=== PATIENT | male | born 1990 | race Caucasian/White ===

== ENCOUNTER 2017-12-15 06:49 | Emergency (ER) | payer BC, OTHER ==
[2017-12-15 07:08] VITALS: BP 147/87
[2017-12-15] MEDS ORDERED: AMOXICILLIN TRIHYDRATE 500 MG CAPSULE PO ONE (07:54)
[2017-12-15] MEDS ORDERED: HYDROCODONE/ACETAMINOPHEN 5-325 MG (6 TAB/ER DISP) PO PRN (07:54)
[2017-12-15] MEDS ORDERED: IBUPROFEN 800 MG TABLET PO ONE (07:54)
--- NOTE | 2017-12-15 07:56 | ER Document Report ---
ED Oral Problem - General Chief Complaint: Toothache Stated Complaint: TOOTHACHE Time Seen by Provider: 12/15/17 07:33 Notes: Patient complaining of left upper molar dental fracture and pain. Has been present for quite some time. Not getting better but getting worse. Has not seen a dentist yet. No difficulty swallowing. No fever. No significant headache. No altered mental status. Pain is described as throbbing. Rated as a 4/5 on a numeric pain scale. - HPI Patient complains to provider of: Jaw pain, Toothache Onset: Last week Onset: Gradual - Related Data Allergies/Adverse Reactions: No Known Drug Allergies Allergy (Verified 12/15/17 07:05) Past Medical History - General Information source: Patient - Social History Smoking Status: Current Every Day Smoker Chew tobacco use (# tins/day): No Frequency of alcohol use: None Drug Abuse: Marijuana Lives with: Spouse/Significant other Family History: Reviewed & Not Pertinent Patient has suicidal ideation: No Patient has homicidal ideation: No Renal/ Medical History: Denies: Hx Peritoneal Dialysis Past Surgical History: Reports: Hx Cardiac Catheterization - ablation Review of Systems - Review of Systems Constitutional: denies: Fever, Malaise, Weakness EENT: See HPI, Mouth pain, Dental problem. denies: Throat pain, Difficulty swallowing, Vertigo Cardiovascular: denies: Chest pain, Palpitations, Heart racing Respiratory: denies: Cough, Hurts to breathe, Short of breath Skin: denies: Lesions, Rash Physical Exam - Vital signs Vitals: Temp Pulse Resp BP Pulse Ox 97.9 F 55 L 20 147/87 H 100 12/15/17 07:07 12/15/17 07:07 12/15/17 07:07 12/15/17 07:07 12/15/17 07:07 Interpretation: Normal - General General appearance: Appears well, Alert In distress: None - HEENT Head: Normocephalic, Atraumatic Eyes: Normal Pupils: PERRL Notes: The left upper molar is cracked. There is no obvious gumline abscess. No significant swelling in the mouth. Teeth are in remarkably good shape. - Respiratory Respiratory status: No respiratory distress Chest status: Nontender Breath sounds: Normal Chest palpation: Normal - Cardiovascular Rhythm: Regular Heart sounds: Normal auscultation Murmur: No - Neurological Neuro grossly intact: Yes Cognition: Normal Orientation: AAOx4 Ceferino Coma Scale Eye Opening: Spontaneous Ceferino Coma Scale Verbal: Oriented Ceferino Coma Scale Motor: Obeys Commands [place] Coma Scale Total: 15 Speech: Normal Motor strength normal: LUE, RUE, LLE, RLE Sensory: Normal - Skin Skin Temperature: Warm Skin Moisture: Dry Skin Color: Normal Course - Re-evaluation Re-evalutation: 12/15/17 08:22 Based on antibiotics, pain medicine, recommend dental follow-up. Will DC at this time. - Vital Signs Vital signs: Temp Pulse Resp BP Pulse Ox 97.9 F 55 L 20 147/87 H 100 12/15/17 07:07 12/15/17 07:07 12/15/17 07:07 12/15/17 07:07 12/15/17 07:07 Discharge - Discharge Clinical Impression: Dental infection Condition: Good Disposition: HOME, SELF-CARE Instructions: [facility], Oral Narcotic Medication ([facility]), Toothache ([facility]) Prescriptions: Amoxicillin 1 tab PO TID 7 Days #21 tab Ibuprofen [Motrin 800 mg Tablet] 800 mg PO Q8H PRN #30 tab PRN Reason:
== END 2017-12-15 08:10 | disposition home or self-care (01) ==
LOC: ER 06:49
DX: K04.7 Periapical abscess without sinus (principal); K08.89 Other specified disorders of teeth and supporting structures; F12.10 Cannabis abuse, uncomplicated
CPT/HCPCS: 99282

== ENCOUNTER 2019-10-12 14:35 | Emergency (ER) | payer BC ==
[2019-10-12] MEDS ORDERED: LORAZEPAM INJ 2 MG/1 ML VIAL IV ONE (15:01)
--- NOTE | 2019-10-12 15:18 | ER Document Report ---
ED General - General Chief Complaint: Chest Pain Stated Complaint: CHEST PAIN Time Seen by Provider: 10/12/19 14:54 Primary Care Provider: GORDY KENNEDY MD [ACTIVE STAFF] - Follow up as needed Notes: 29-year-old male with a history of Xwkry-Fyxxhfufj-Sxdgg ablated 10 years ago has had no care since then, presents with chest pain intermittently for 6 weeks sharp palpitations has not been seen for this. He came here today for this but when getting checked and became quite short of breath with hand cramping and tingling. He has no shortness of breath no fevers coronavirus contacts. He smokes occasional marijuana and cigarettes drinks occasional alcohol but no other substances. Ports that when his blood pressure is being taken his hand cramped up. - Related Data Allergies/Adverse Reactions: No Known Drug Allergies Allergy (Verified 12/15/17 07:05) Past Medical History - Social History Smoking Status: Current Some Day Smoker Smoking Education Provided: Yes - The patient ED visit today was directly related to their abuse of tobacco. Family History: Reviewed & Not Pertinent Renal/ Medical History: Denies: Hx Peritoneal Dialysis Past Surgical History: Reports: Hx Cardiac Catheterization - ablation Physical Exam - Vital signs Vitals: Pulse Ox 100 10/12/19 14:59 Course - Re-evaluation Re-evalutation: 10/12/19 18:47 Patient with history of WPW presents with intermittent atypical chest pain for weeks, and shortness of breath today after checking in. He has some signs of carpopedal spasm and is hyperventilating so I think this is very likely secondary to hyperventilation secondary to anxiety because of his chest pain. He has no acute ST or T wave changes on his EKG negative troponin, calm down well with a dose of Ativan, and on repeat EKG did not show any subtle findings of preexcitation or ischemia. I have referred him to a local car wash attendant automatic and he is comfortable being discharged home. His electrolytes were essentially normal. I have discussed with the patient there likely diagnosis, aftercare plan, follow-up plans and my usual and customary return precautions. They verbalized understanding of this. - Vital Signs Vital signs: Temp Pulse Resp BP Pulse Ox 98.6 F 13 126/85 H 97 10/12/19 16:39 10/12/19 16:38 10/12/19 16:39 10/12/19 16:39 - Laboratory Result Diagrams: 10/12/19 15:07 Laboratory results interpreted by me: 10/12/19 15:07 Sodium 136.5 L Potassium 3.5 L Glucose 125 H - Diagnostic Test Radiology reviewed: Image reviewed, Reports reviewed - EKG Interpretation by Me EKG shows normal: Sinus rhythm Rate: Normal, Tachycardia Rhythm: NSR When compared to previous EKG there are: Previous EKG unavailable - EKG #2: Sinus tachycardia less so than previous with no ST changes or preexcitation Discharge - Discharge Clinical Impression: Atypical chest pain Condition: Good Disposition: HOME, SELF-CARE Referrals: GORDY KENNEDY MD [ACTIVE STAFF] - Follow up as needed
--- NOTE | 2019-10-12 15:33 | RADIOLOGY REPORT (SQ) ---
EXAM DESCRIPTION: CHEST SINGLE VIEW IMAGES COMPLETED DATE/TIME: 10/12/2019 3:22 pm REASON FOR STUDY: SOB COMPARISON: None. EXAM PARAMETERS: NUMBER OF VIEWS: One view. TECHNIQUE: Single frontal radiographic view of the chest acquired. RADIATION DOSE: NA LIMITATIONS: None. FINDINGS: LUNGS AND PLEURA: No opacities, masses or pneumothorax. No pleural effusion. MEDIASTINUM AND HILAR STRUCTURES: No masses. Contour normal. HEART AND VASCULAR STRUCTURES: Heart normal in size. Normal vasculature. BONES: No acute findings. HARDWARE: None in the chest. OTHER: No other significant finding. IMPRESSION: NO ACUTE RADIOGRAPHIC FINDING IN THE CHEST. TECHNICAL DOCUMENTATION: JOB ID: [id number] 2010 [employer]- All Rights Reserved Reading location - IP/workstation name: [email or web address]
[2019-10-12 15:44] LABS: ANION GAP 14 (5-19); BLOOD UREA NITROGEN 13 mg/dL (7-20); CARBON DIOXIDE 24 mmol/L (22-30); CHLORIDE 99 mmol/L (98-107); GLUCOSE 125 mg/dL (75-110); POTASSIUM 3.5 mmol/L (3.6-5.0)
[2019-10-12 16:43] VITALS: BP 126/85
--- NOTE | 2019-10-12 20:59 | EKG REPORT ---
SEVERITY:- ABNORMAL ECG - SINUS RHYTHM BORDERLINE Q WAVES IN LATERAL LEADS INFERIOR Q WAVES, PROBABLY NORMAL VARIATION ST ELEVATION SUGGESTS PERICARDITIS : Confirmed by: Janet Hua MD 12-Oct-2019 20:59:12
--- NOTE | 2019-10-12 21:00 | EKG REPORT ---
SEVERITY:- OTHERWISE NORMAL ECG - SINUS TACHYCARDIA : Confirmed by: Janet Hua MD 12-Oct-2019 20:59:47
== END 2019-10-12 16:49 | disposition home or self-care (01) ==
LOC: ER 14:35
DX: R07.89 Other chest pain (principal); R00.0 Tachycardia, unspecified; I45.6 Pre-excitation syndrome; R00.2 Palpitations; R20.0 Anesthesia of skin; F12.10 Cannabis abuse, uncomplicated; F17.210 Nicotine dependence, cigarettes, uncomplicated
CPT/HCPCS: 93005; 99285; 96374; 36415; 80048; 84484; 85379; 71045; 93010; J2060

== ENCOUNTER 2019-10-15 06:53 | Emergency (ER) | payer BC ==
--- NOTE | 2019-10-15 07:35 | ER Document Report ---
ED General - General Chief Complaint: Chest Pain Stated Complaint: CHEST PAIN Time Seen by Provider: 10/15/19 07:19 Mode of Arrival: Ambulatory Information source: Patient Notes: An 29-year-old male presents to the emergency department with a complaint of chest discomfort. Apparently seen in the emergency department 10/12/2019, evaluation at time was negative for acute coronary related syndrome. It is noted that the patient had a history of WPW, ablation procedure 10 years ago at [facility]. He complains of approximately 6 weeks of intermittent chest discomfort with pain that radiates into his back on the left side and across the chest. Intermittent episodes unrelated to activities apparently no prolonged episodes which resolve within minutes. He is a smoker, cigarettes and marijuana. He denies illicit drug use. - Related Data Allergies/Adverse Reactions: No Known Drug Allergies Allergy (Verified 12/15/17 07:05) Past Medical History - Social History Smoking Status: Current Every Day Smoker Family History: Reviewed & Not Pertinent Neurological Medical History: Reports: Hx Seizures Renal/ Medical History: Denies: Hx Peritoneal Dialysis Past Surgical History: Reports: Hx Cardiac Catheterization - ablation Review of Systems - Review of Systems Notes: Constitutional: Negative for fever. HENT: Negative for sore throat. Eyes: Negative for visual changes. Cardiovascular: + Chest pain. Respiratory: Negative for shortness of breath. Gastrointestinal: Negative for abdominal pain, vomiting or diarrhea. Genitourinary: Negative for dysuria. Musculoskeletal: Negative for back pain. Skin: Negative for rash. Neurological: Negative for headaches, weakness or numbness. 10 point ROS negative except as marked above and in HPI. Physical Exam - Vital signs Vitals: Temp Resp Pulse Ox 98.1 F 16 98 10/15/19 07:28 10/15/19 07:28 10/15/19 07:28 - Notes Notes: PHYSICAL EXAMINATION: Physical Exam: General: Well-nourished well-developed 29-year-old man in no acute distress HEENT: NC/AT, pupils equal round and reactive to light, MM moist,nares clear, oropharynx clear, airway patent Neck: supple, no adenopathy, no masses. Good range of motion Lungs: clear, no wheezing, no rales no rhonchi CVS: Regular rate and rhythm no murmur gallop or rub Abdomen: Soft, active, nontender, no masses, no hepatosplenomegaly Ext: No edema, clubbing or cyanosis. Neuro: Alert and responsive, moving all 4 extremities on command, cranial nerves intact, no focal findings Skin: Intact no open lesions, no rash PSYCH: Normal mood, normal affect. Course - Re-evaluation Re-evalutation: 10/15/19 08:48 29-year-old man with atypical chest pain. Presently not using any medications for symptoms. EKG nondiagnostic physiologic Q waves in repolarization abnormality. I have compared this EKG with the prior 1 and there is no significant difference. 10/15/19 08:50 Reviewed the labs no acute findings. - Vital Signs Vital signs: Temp Pulse Resp BP Pulse Ox 98.2 F 11 L 119/81 97 10/15/19 09:20 10/15/19 09:20 10/15/19 09:20 10/15/19 09:20 - Laboratory Result Diagrams: 10/15/19 07:33 10/15/19 07:33 Laboratory results interpreted by me: 10/15/19 07:33 RDW 14.4 H Lymph % (Auto) 54.5 H Seg Neutrophils % 34.4 L I have reviewed laboratory data and used this information for the treatment decisions regarding the patient. - EKG Interpretation by Ar EKG shows normal: Sinus rhythm - Rate of 67, patient noted to have physiologic Q waves, repolarization abnormality, compared with a prior EKG dated 10/12/2019 the re is no significant changes. Likely normal variant. Discharge - Discharge Clinical Impression: Non-cardiac chest pain Condition: Good Disposition: HOME, SELF-CARE Additional Instructions: Use medication as prescribed, Naprosyn, baclofen. Keep the appointment with cardiology, follow-up as needed. HOME CARE INSTRUCTIONS & INFORMATION: Thank you for choosing us for your medical needs. We hope you're satisfied with the care you received. After you l eave, you must properly care for your problem and, at the same time, observe its progress. Any condition can change. Some illnesses can change rapidly over hours or days. If your condition worsens, return to the Emergency Department or see your physician promptly. ABOUT YOUR X-RAYS AND EKG'S: If you had an EKG or X-rays taken, they have been read by the Emergency Physician. The X-rays and EKG's will also be read by a Radiologist or Apprentice Jockey within 24 hours. If discrepancies are noted, you will be notified by telephone. Please be certain the ED has a correct telephone number & address where you can be reached. Also, realize that some fractures or abnormalities do not show up on initial X-rays. If your symptoms continue, see your physician. ABOUT YOUR LABORATORY TEST: If you had laboratory tests, the results have been reviewed by the Emergency Physician. Some test results (for example cultures) may not be available for several days. You will be contacted if any test result shows you need additional treatment. Please be certain the ED has a correct telephone number and address where you can be reached. ABOUT YOUR MEDICATIONS: You will receive instructions on how to take your medicine on the prescription label you receive. Additional information may be provided by the Pharmacy. If you have questions afterwards, call the ED for clarification or further instructions. Some prescribed medications may cause drowsiness. Do not perform tasks such as driving a car or operating machinery without consulting your Pharmacist. If you feel you need a refill of pain medication, your condition will need re-evaluation. Please do not call for a refill of any medication. ABOUT YOUR SIGNATURE: Signature of this document acknowledges to followin. Understanding that you received emergency treatment and that you may be released before al medical problems are known or treated. Please be certain the ED has a correct phone number & address where you can be reached. 2. Acknowledgement that you will arrange for follow-up care as recommended. 3. Authorization for the Emergency Physician to provide information to your follow-up Physician in order to maximize your care. AT ANY TIME, IF YOUR SYMPTOMS CHANGE SIGNIFICANTLY OR WORSEN OR YOU DEVELOP NEW SYMPTOMS, RETURN TO THE EMERGENCY DEPARTMENT IMMEDIATELY FOR RE-EVALUATION. OUR GOAL IS TO PROVIDE EXCELLENT MEDICAL CARE! WE HOPE THAT WE HAVE MET YOUR EXPECTATIONS DURING YOUR EMERGENCY DEPARTMENT VISI T AND THAT YOU FEEL YOU HAVE RECEIVED EXCELLENT CARE! Prescriptions: Baclofen [Baclofen 10 mg Tablet] 10 mg PO TID #30 tab Naproxen [Naprosyn] 500 mg PO BID #20 tablet
[2019-10-15 07:45] LABS: ABSOLUTE BASOPHILS # (AUTO) 0.1 10^3/uL (0.0-0.2); ABSOLUTE EOSINOPHILS # (AUTO) 0.1 10^3/uL (0.0-0.6); ABSOLUTE LYMPHOCYTES (AUTO) 2.6 10^3/uL (0.5-4.7); ABSOLUTE MONOCYTES (AUTO) 0.4 10^3/uL (0.1-1.4); ABSOLUTE NEUT (AUTO) 1.7 10^3/uL (1.7-8.2); BASOPHILS % (AUTO) 1.3 % (0-2); EOSINOPHILS % (AUTO) 2.2 % (0-6); HEMATOCRIT 46.4 % (37.9-51.0); HEMOGLOBIN 15.8 g/dL (13.5-17.0); LYMPHOCYTES % (AUTO) 54.5 % (13-45); MEAN CORPUSCULAR HEMOGLOBIN 30.7 pg (27.0-33.4); MEAN CORPUSCULAR HGB CONC 34.1 g/dL (32.0-36.0); MEAN CORPUSCULAR VOLUME 90 fl (80-97); MONOCYTES % (AUTO) 7.6 % (3-13); PLATELET COUNT 203 10^3/uL (150-450); RED BLOOD COUNT 5.17 10^6/uL (4.35-5.55); RED CELL DISTRIBUTION WIDTH 14.4 % (11.5-14.0); SEGMENTED NEUTROPHILS % (AUTO) 34.4 % (42-78); TOTAL CELLS COUNTED % (AUTO) 100 %; WHITE BLOOD COUNT 4.8 10^3/uL (4.0-10.5)
[2019-10-15 08:04] LABS: ALKALINE PHOSPHATASE 67 U/L (38-126); ANION GAP 8 (5-19); ASPARTATE AMINO TRANSFERASE 29 U/L (17-59); BILIRUBIN,TOTAL 0.8 mg/dL (0.2-1.3); BLOOD UREA NITROGEN 12 mg/dL (7-20); CARBON DIOXIDE 28 mmol/L (22-30); CHLORIDE 102 mmol/L (98-107); CREATINE KINASE 125 U/L (55-170); GLUCOSE 104 mg/dL (75-110); POTASSIUM 4.5 mmol/L (3.6-5.0); TOTAL PROTEIN 8.2 g/dL (6.3-8.2)
--- NOTE | 2019-10-15 08:04 | EKG REPORT ---
SEVERITY:- BORDERLINE ECG - SINUS RHYTHM BORDERLINE Q WAVES IN LATERAL LEADS INFERIOR Q WAVES, PROBABLY NORMAL VARIATION : Confirmed by: Janet Hua MD 15-Oct-2019 08:03:17
[2019-10-15 08:08] LABS: APPEARANCE,URINE CLEAR; BILIRUBIN,URINE NEGATIVE (NEGATIVE); COLOR,URINE YELLOW; GLUCOSE, URINE NEGATIVE (NEGATIVE); KETONES,URINE NEGATIVE (NEGATIVE); PROTEIN,URINE NEGATIVE (NEGATIVE); URINE SPECIFIC GRAVITY 1.015; UROBILINOGEN,URINE NEGATIVE mg/dL (<2.0)
[2019-10-15 08:16] LABS: CREATINE KINASE MB 1.16 ng/mL (<4.55)
[2019-10-15 08:19] LABS: TROPONIN I < 0.012 ng/mL
[2019-10-15 08:24] LABS: URINE AMPHETAMINES SCREEN NEGATIVE; URINE BENZODIAZEPINES SCREEN NEGATIVE; URINE COCAINE SCREEN NEGATIVE; URINE METHADONE SCREEN NEGATIVE; URINE PHENCYCLIDINE SCREEN NEGATIVE
[2019-10-15 08:30] LABS: URINE BARBITURATES SCREEN UNCONFIRMED POSITIVE; URINE MARIJUANA (THC) SCREEN UNCONFIRMED POSITIVE
[2019-10-15] MEDS ORDERED: KETOROLAC TROMETHAMINE INJ/PF 30 MG/1 ML SDV IV ONE (08:57)
[2019-10-15 09:27] VITALS: BP 119/81
== END 2019-10-15 09:27 | disposition home or self-care (01) ==
LOC: ER 06:53
DX: R07.89 Other chest pain (principal); F17.200 Nicotine dependence, unspecified, uncomplicated
CPT/HCPCS: 93005; 99285; 96374; 36415; 82553; 82550; 85025; 80053; 81001; 84484; 80307; 93010; J1885

== ENCOUNTER 2019-10-31 09:30 | Emergency (ER) | payer BC ==
--- NOTE | 2019-10-31 10:25 | ER Document Report ---
ED Wound - General Chief Complaint: Laceration Stated Complaint: LACERATION TO LEFT WRIST/HAND Time Seen by Provider: 10/31/19 10:25 Mode of Arrival: Ambulatory Information source: Patient Notes: 29-year-old male with no previous medical problems presents to the emergency room with a laceration to his left wrist. 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 Patient is right-handed. His tetanus is up-to-date. Bleeding is controlled. TRAVEL OUTSIDE OF THE [place] IN LAST 30 DAYS: No - Related Data Allergies/Adverse Reactions: No Known Drug Allergies Allergy (Verified 12/15/17 07:05) Home Medications: Naproxen Past Medical History - General Information source: Patient - Social History Smoking Status: Current Some Day Smoker Chew tobacco use (# tins/day): No Frequency of alcohol use: Occasional Drug Abuse: Marijuana Family History: Reviewed & Not Pertinent Patient has homicidal ideation: No Neurological Medical History: Reports: Hx Seizures Renal/ Medical History: Denies: Hx Peritoneal Dialysis Past Surgical History: Reports: Hx Cardiac Catheterization - ablation - Immunizations Immunizations up to date: Yes Review of Systems - Review of Systems Constitutional: No symptoms reported Cardiovascular: No symptoms reported Respiratory: No symptoms reported Gastrointestinal: No symptoms reported Musculoskeletal: No symptoms reported Skin: Other - Laceration left wrist Neurological/Psychological: No symptoms reported -: Yes All other systems reviewed and negative Physical Exam - Vital signs Vitals: Temp Pulse Resp BP Pulse Ox 98.4 F 75 18 156/95 H 99 10/31/19 09:33 10/31/19 09:33 10/31/19 09:33 10/31/19 09:33 10/31/19 09:33 - General General appearance: Appears well, Alert In distress: Mild - Respiratory Respiratory status: No respiratory distress Chest status: Nontender Breath sounds: Normal Chest palpation: Normal - Cardiovascular Rhythm: Regular Heart sounds: Normal auscultation Murmur: No - Extremities General lower extremity: Normal inspection, Nontender Wrist: Tender, Laceration - 3 cm laceration noted to the left wrist. Irregular with a flap through the middle of the laceration. - Neurological Neuro grossly intact: Yes Cognition: Normal Orientation: AAOx4 Ceferino Coma Scale Eye Opening: Spontaneous Ceferino Coma Scale Verbal: Oriented [place] Coma Scale Motor: Obeys Commands [place] Coma Scale Total: 15 Speech: Normal Motor strength normal: LUE, RUE, LLE, RLE Sensory: Normal - Skin Skin Temperature: Warm Skin Moisture: Dry Skin Color: Normal Skin irregularity: Laceration Location of irregularity: Extremities Character of irregularity: Linear Course - Re-evaluation Re-evalutation: 10/31/19 12:21 Discussed x-ray results with patient. There was small piece of glass noted along the edge of the wound was able to remove with forceps without difficulty. Wound was probed and irrigated extensively no additional foreign bodies were palpated or found. There was no tendon injury noted. Full range of motion with flexion extension of the fingers. Wound was cleansed and sutured as documented. Dressing applied by nursing staff as documented. Wound care discussed. Sutures out in 8 to 10 days. Patient was given strict return to the emergency room guidelines. Return for any new or worsening symptoms. All questions were answered. Patient verbalized understanding and agrees with plan of care. 10/31/19 19:58 - Vital Signs Vital signs: Temp Pulse Resp BP Pulse Ox 98.0 F 58 L 14 130/79 H 97 10/31/19 12:42 10/31/19 12:42 10/31/19 12:42 10/31/19 12:42 10/31/19 12:42 - Diagnostic Test Radiology reviewed: Reports reviewed Procedures - Laceration/Wound Repair Left Wrist Time completed: 12:19 Wound length (cm): 2 Wound's Depth, Shape: Superficial, Irregular, Flap Laceration pre-procedure: Sterile PPE donned, Sterile drapes applied, Shur-Clens applied Anesthetic type: 1% Lidocaine Volume Anesthetic (mLs): 2 - Small please a glass noted at the edge of the wound able to remove with no difficulty Wound explored: Foreign body removed Wound Repaired With: Sutures Suture Size/Type: 4:0 Number of Sutures: 8 Layer Closure?: No Post-procedure wound care: Sterile dressing applied Post-procedure NV exam normal: Yes Complications: No Discharge - Discharge Clinical Impression: Laceration of left wrist Qualifiers: Encounter type: initial encounter Qualified Code(s): S61.512A - Laceration without foreign body of left wrist, initial encounter Condition: Stable Disposition: HOME, SELF-CARE Instructions: Laceration Care ([facility]) Additional Instructions: You can remove the dressing in 24 hours. Keep wound clean and dry. Tylenol or Motrin for pain. She is out 8 to 10 days. Return for any new or worsening symptoms.
[2019-10-31] MEDS ORDERED: LIDOCAINE 1% INJ-PF (10 MG/ML) 30 ML SDV INJ ONE (10:52)
[2019-10-31] MEDS ORDERED: KETOROLAC TROMETHAMINE 60 MG/2 ML SDV IM ONE (10:52)
--- NOTE | 2019-10-31 11:32 | RADIOLOGY REPORT (SQ) ---
EXAM DESCRIPTION: HAND LEFT 3 VIEWS IMAGES COMPLETED DATE/TIME: 10/31/2019 10:10 am REASON FOR STUDY: laceration from glass to palm COMPARISON: None. EXAM PARAMETERS: NUMBER OF VIEWS: Three views. TECHNIQUE: AP, lateral and oblique radiographic images acquired of the left hand. LIMITATIONS: None. FINDINGS: MINERALIZATION: Normal. BONES: No acute fracture or dislocation. No worrisome bone lesions. JOINTS: No effusions. SOFT TISSUES: No soft tissue swelling. No foreign body. OTHER: No other significant finding. IMPRESSION: NEGATIVE STUDY OF THE LEFT HAND. NO RADIOGRAPHIC EVIDENCE OF ACUTE INJURY. TECHNICAL DOCUMENTATION: JOB ID: [id number] 2010 [employer]- All Rights Reserved Reading location - IP/workstation name: [email or web address]
[2019-10-31 12:46] VITALS: BP 130/79
== END 2019-10-31 12:42 | disposition home or self-care (01) ==
LOC: ER 09:30
PROC: 0HQEXZZ Repair Left Lower Arm Skin, External Approach (ICD-10-PCS; principal; 2019-10-31)
DX: S61.512A Laceration without foreign body of left wrist, initial encounter (principal); W45.8XXA Other foreign body or object entering through skin, initial encounter; F17.200 Nicotine dependence, unspecified, uncomplicated
CPT/HCPCS: 99283; 73130; 12001; J1885; J3490

== ENCOUNTER 2019-11-09 07:10 | Emergency (ER) | payer BC ==
--- NOTE | 2019-11-09 08:13 | ER Document Report ---
HPI - HPI Time Seen by Provider: 11/09/19 08:12 Pain Level: Denies Notes: 29-year-old male presents emergency room today for suture removal to his left wrist after he sustained a laceration glass. Patient received 7 simple sutures. His tetanus is up-to-date. Patient denies any redness, swelling, drainage, no numbness or tingling to his left fingers hand or wrist. Denies any signs and symptoms of infection. States that healed without any issues. Denies any other area of injury. Denies fevers, chills, chest pain,palpitations, shortness of breath, dyspnea, abdominal pain, hematuria. weakness, bowel or bladder dysfunction, saddle anesthesia, numbness or tingling in bilateral upper or lower extremities equally, muscle paralysis, weakness in bilateral upper or lower extremities equally or rash. MEDICATIONS: I agree with the patient medications as charted by the RN. ALLERGIES: I agree with the allergies as charted by the RN. PAST MEDICAL HISTORY/PAST SURGICAL HISTORY: Reviewed and agree as charted by RN. SOCIAL HISTORY: Reviewed and agree as charted by RN. FAMILY HISTORY: No significant familial comorbid conditions directly related to patient complaint EXAM: Reviewed vital signs as charted by RN. REVIEW OF SYSTEMS:reviewed vital signs by RN CONSTITUTIONAL : Denies fever, chills, or sweats. Denies recent illness. EENT: Denies eye, ear, throat, or mouth pain or symptoms. Denies nasal or sinus congestion or discharge. Denies throat, tongue, or mouth swelling or difficulty swallowing. CARDIOVASCULAR: Denies chest pain. Denies palpitations or racing or irregular heart beat. Denies ankle edema. RESPIRATORY: Denies cough, cold, or chest congestion. Denies shortness of breath, difficulty breathing, or wheezing. GASTROINTESTINAL: Denies abdominal pain or distention. Denies nausea, vomiting, or diarrhea. Denies blood in vomitus, stools, or per rectum. Denies black, tarry stools. Denies constipation. GENITOURINARY: Denies difficulty urinating, painful urination, burning, frequency, blood in urine, or discharge. MUSCULOSKELETAL: Denies back or neck pain or stiffness. Denies joint pain or swelling. SKIN: Sutures placed to left wrist denies rash, lesions or sores. HEMATOLOGIC : Denies easy bruising or bleeding. LYMPHATIC: Denies swollen, enlarged glands. NEUROLOGICAL: Denies confusion or altered mental status. Denies passing out or loss of consciousness. Denies dizziness or lightheadedness. Denies headache. Denies weakness or paralysis or loss of use of either side. Denies problems with gait or speech. Denies sensory loss, numbness, or tingling. Denies seizures. PSYCHIATRIC: Denies anxiety or stress. Denies depression, suicidal ideation, or homicidal ideation. ALL OTHER SYSTEMS REVIEWED AND NEGATIVE. Dictation was performed using [employer] voice recognition software PHYSICAL EXAMINATION: GENERAL: Well-appearing, well-nourished and in no acute distress. HEAD: Atraumatic, normocephalic. EYES: Pupils equal round and reactive to light, extraocular movements intact, sclera anicteric, conjunctiva are normal. ENT: Nares patent, oropharynx clear without exudates. Moist mucous membranes. NECK: Normal range of motion, supple without lymphadenopathy LUNGS: Breath sounds clear to auscultation bilaterally and equal. No wheezes rales or rhonchi. HEART: Regular rate and rhythm without murmurs ABDOMEN: Soft, nontender, nondistended abdomen. No guarding, no rebound. No masses appreciated. Musculoskeletal: Normal range of motion, no pitting or edema. No cyanosis. NEUROLOGICAL: Cranial nerves grossly intact. Normal speech, normal gait. Normal sensory, motor exams PSYCH: Normal mood, normal affect. SKIN: Warm, Dry, normal turgor, no rashes or lesions noted. 7 simple sutures to volar aspect of left wrist distal to thumb. Syrup Mixer Helper + 2 BUE equally. radial pulses + 2 BUE equally. Negative kanavels sign. No vascular compromise.No body crepitus or focal area of TTP. full AROM with flexion, extension, ulnar/radial deviation . Motor and sensory function of ulnar, radial, medial nerves intact bilaterally and equally. - REPRODUCTIVE Reproductive: DENIES: : Past Medical History - General Information source: Patient - Social History Smoking Status: Current Every Day Smoker Chew tobacco use (# tins/day): No Frequency of alcohol use: Occasional Drug Abuse: Marijuana Family History: Reviewed & Not Pertinent Patient has homicidal ideation: No Neurological Medical History: Reports: Hx Seizures Renal/ Medical History: Denies: Hx Peritoneal Dialysis Past Surgical History: Reports: Hx Cardiac Catheterization - ablation - Immunizations Immunizations up to date: Yes Vertical Provider Document - CONSTITUTIONAL Agree With Documented VS: Yes Exam Limitations: No Limitations General Appearance: WD/WN - INFECTION CONTROL TRAVEL OUTSIDE OF THE [place] IN LAST 30 DAYS: No Course - Re-evaluation Re-evalutation: 11/09/19 08:33 Afebrile vital stable no distress. Nurses notes reviewed. Left wrist with 7 simple sutures, well-healing. No signs and symptoms of infection such as redness, swelling, warmth to touch. Sutures removed by medical radiation tech without incident. Discussed with patient to monitor for any signs of infection such as redness, swelling, drainage, warmth to touch. Advised to wash with soap and water twice a day or when contaminated. Follow-up with primary care doctor as needed. After performing a Medical Screening Examination, I estimate there is LOW risk for OPEN FRACTURE, COMPARTMENT SYNDROME, TENDON RUPTURE, ACUTE NEUROVASCULAR INJURY, or RETAINED FOREIGN BODY, thus I consider the discharge disposition reasonable. Also, there is no evidence or peritonitis, sepsis, or toxicity. I have reevaluated this patient multiple times and no significant life threatening changes are noted. The patient and I have discussed the demetrio gnosis and risks, and we agree with discharging home with close follow-up with the understanding that symptoms and presentations can change. We also discussed returning to the Emergency Department immediately if new or worsening symptoms occur. We have discussed the symptoms which are most concerning (e.g., changing or worsening pain, fever, numbness, weakness, cool or painful digits) that necessitate immediate return. - Vital Signs Vital signs: Temp Pulse Resp BP Pulse Ox 97.7 F 99 16 150/86 H 99 11/09/19 07:32 11/09/19 07:13 11/09/19 07:13 11/09/19 07:13 11/09/19 07:13 Discharge - Discharge Clinical Impression: Visit for suture removal Condition: Stable Disposition: HOME, SELF-CARE Instructions: Suture Removal Additional Instructions: 7 stitches were removed today without incident. Please monitor for any signs of symptoms of infection such as redness, swelling, warmth around the wound. Follow-up with your primary care as needed. Return immediately for any new or worsening symptoms. Follow up with primary care provider, call tomorrow to make followup appointment. Referrals: FREYA FISHER MD [COMMUNITY BASED STAFF] - Follow up as needed
[2019-11-09 08:40] VITALS: BP 138/85
== END 2019-11-09 08:38 | disposition home or self-care (01) ==
LOC: ER 07:10
DX: S61.512D Laceration without foreign body of left wrist, subsequent encounter (principal); W25.XXXD Contact with sharp glass, subsequent encounter; F17.200 Nicotine dependence, unspecified, uncomplicated; F12.10 Cannabis abuse, uncomplicated
CPT/HCPCS: 99281

== ENCOUNTER 2020-01-06 14:41 | Emergency (ER) | payer BC ==
--- NOTE | 2020-01-06 15:03 | ER Document Report ---
ED Medical Screen (RME) - General Chief Complaint: Chest Pain Stated Complaint: CHEST PAIN Time Seen by Provider: 01/06/20 14:58 Mode of Arrival: Wheelchair Information source: Patient Notes: 29-year-old male presented to ED for complaint of chest pain. He states he had it once months ago and came him got worked up was seen by a meter repairer they told told him it was because he was hyperventilating. He states his hands have been all cramped up for about an hour now. He states they cramped up last time also. He states he has been working in the sun today. He states he does smoke 1/2 pack a day drinks weekly and uses marijuana occasionally. 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 He is alert oriented respirations regular nonlabored speaking in full sentences. I have greeted and performed a rapid initial assessment of this patient. A comprehensive ED assessment and evaluation of the patient, analysis of test results and completion of medical decision making process will be conducted by an additional ED providers. TRAVEL OUTSIDE OF THE [place] IN LAST 30 DAYS: No - Related Data Allergies/Adverse Reactions: No Known Drug Allergies Allergy (Verified 11/09/19 07:40) Past Medical History Neurological Medical History: Reports: Hx Seizures Renal/ Medical History: Denies: Hx Peritoneal Dialysis Past Surgical History: Reports: Hx Cardiac Catheterization - ablation - Immunizations Immunizations up to date: Yes Physical Exam - Vital signs Vitals: Temp Pulse Resp BP Pulse Ox 97.9 F 130 H 16 150/133 H 100 01/06/20 14:53 01/06/20 14:53 01/06/20 14:53 01/06/20 14:53 01/06/20 14:53 Course - Vital Signs Vital signs: Temp Pulse Resp BP Pulse Ox 97.9 F 130 H 16 150/133 H 100 01/06/20 14:53 01/06/20 14:53 01/06/20 14:53 01/06/20 14:53 01/06/20 14:53
[2020-01-06] MEDS ORDERED: NORMAL SALINE 1000 ML 1,000 ML IV ONE (15:06)
[2020-01-06 15:57] LABS: ABSOLUTE BASOPHILS # (AUTO) 0.1 10^3/uL (0.0-0.2); ABSOLUTE EOSINOPHILS # (AUTO) 0.1 10^3/uL (0.0-0.6); ABSOLUTE LYMPHOCYTES (AUTO) 3.8 10^3/uL (0.5-4.7); ABSOLUTE MONOCYTES (AUTO) 0.8 10^3/uL (0.1-1.4); ABSOLUTE NEUT (AUTO) 5.4 10^3/uL (1.7-8.2); APPEARANCE,URINE CLEAR; BASOPHILS % (AUTO) 0.5 % (0-2); BILIRUBIN,URINE SMALL (NEGATIVE); COLOR,URINE AMBER; EOSINOPHILS % (AUTO) 0.8 % (0-6); GLUCOSE, URINE NEGATIVE (NEGATIVE); HEMATOCRIT 50.2 % (37.9-51.0); HEMOGLOBIN 17.1 g/dL (13.5-17.0); KETONES,URINE TRACE mg/dL (NEGATIVE); LEUKOCYTE ESTERASE,URINE NEGATIVE (NEGATIVE); LYMPHOCYTES % (AUTO) 37.9 % (13-45); MEAN CORPUSCULAR HEMOGLOBIN 31.4 pg (27.0-33.4); MEAN CORPUSCULAR VOLUME 92 fl (80-97); MONOCYTES % (AUTO) 7.8 % (3-13); NITRITE,URINE NEGATIVE (NEGATIVE); PLATELET COUNT 205 10^3/uL (150-450); PROTEIN,URINE 100 mg/dL (NEGATIVE); RED BLOOD COUNT 5.45 10^6/uL (4.35-5.55); RED CELL DISTRIBUTION WIDTH 13.8 % (11.5-14.0); TOTAL CELLS COUNTED % (AUTO) 100 %; URINE SPECIFIC GRAVITY 1.026; WHITE BLOOD COUNT 10.1 10^3/uL (4.0-10.5)
[2020-01-06 15:58] LABS: ALBUMIN 5.4 g/dL (3.5-5.0); ALKALINE PHOSPHATASE 97 U/L (38-126); ANION GAP 10 (5-19); ASPARTATE AMINO TRANSFERASE 39 U/L (17-59); BILIRUBIN,TOTAL 0.6 mg/dL (0.2-1.3); BLOOD UREA NITROGEN 9 mg/dL (7-20); CALCIUM 9.9 mg/dL (8.4-10.2); CARBON DIOXIDE 25 mmol/L (22-30); CHLORIDE 101 mmol/L (98-107); CREATINE KINASE 166 U/L (55-170); GLUCOSE 111 mg/dL (75-110); PHOSPHORUS 1.4 mg/dL (2.5-4.5); POTASSIUM 3.4 mmol/L (3.6-5.0); TOTAL PROTEIN 8.5 g/dL (6.3-8.2)
--- NOTE | 2020-01-06 15:59 | RADIOLOGY REPORT (SQ) ---
EXAM DESCRIPTION: CHEST 2 VIEWS IMAGES COMPLETED DATE/TIME: 01/06/2020 3:40 pm REASON FOR STUDY: chest pain tachycardia COMPARISON: 10/12/2019 TECHNIQUE: Frontal and lateral radiographic views of the chest acquired. NUMBER OF VIEWS: Two view. LIMITATIONS: None. FINDINGS: LUNGS AND PLEURA: No pneumothorax. No consolidation or pleural effusion. MEDIASTINUM AND HILAR STRUCTURES: Stable. HEART AND VASCULAR STRUCTURES: Stable. BONES: No acute findings. HARDWARE: None in the chest. OTHER: No other significant finding. IMPRESSION: NO ACUTE FINDINGS. TECHNICAL DOCUMENTATION: JOB ID: [id number] [place]-[id number] 2010 [employer]- All Rights Reserved Reading location - IP/workstation name: [email or web address]
[2020-01-06 16:16] LABS: URINE AMPHETAMINES SCREEN NEGATIVE; URINE BARBITURATES SCREEN NEGATIVE; URINE BENZODIAZEPINES SCREEN NEGATIVE; URINE COCAINE SCREEN NEGATIVE; URINE MARIJUANA (THC) SCREEN UNCONFIRMED POSITIVE; URINE METHADONE SCREEN NEGATIVE; URINE PHENCYCLIDINE SCREEN NEGATIVE
--- NOTE | 2020-01-06 16:21 | ER Document Report ---
ED General - General Chief Complaint: Chest Pain Stated Complaint: CHEST PAIN Time Seen by Provider: 01/06/20 14:58 Mode of Arrival: Wheelchair Notes: 21-year-old male presents with palpitations hyperventilation and hand cramping bilaterally with tingling. Occurred for 1 hour after working in the sun. Resolved now. History of SVT ablated at [facility] in 2011 and has had 3 ED visits since then with the same thing all of which had negative work-ups. Tachycardic at triage now normal. Feels fine now. Normal "daddy stress" and still smokes. TRAVEL OUTSIDE OF THE [place] IN LAST 30 DAYS: No - Related Data Allergies/Adverse Reactions: No Known Drug Allergies Allergy (Verified 11/09/19 07:40) Past Medical History - General Information source: Patient - Social History Smoking Status: Current Every Day Smoker Chew tobacco use (# tins/day): No Smoking Education Provided: Yes - The patient ED visit today was directly related to their abuse of tobacco. Frequency of alcohol use: Social Drug Abuse: Marijuana Family History: Reviewed & Not Pertinent Neurological Medical History: Reports: Hx Seizures Renal/ Medical History: Denies: Hx Peritoneal Dialysis Past Surgical History: Reports: Hx Cardiac Catheterization - ablation - Immunizations Immunizations up to date: Yes Review of Systems - Review of Systems Notes: REVIEW OF SYSTEMS GEN: Denies fever, chills, weight loss ENT: Denies sore throat, nasal discharge, ear pain EYES: Denies blurry vision, eye pain, discharge CV: Palpitations RESP: Denies cough, shortness of breath, wheezing GI: Denies abdominal pain, nausea, vomiting, diarrhea MSK: Denies joint pain/swelling, edema, SKIN: Denies rash, skin lesions LYMPH: Denies swollen glands/lymph nodes NEURO: Lip tingling hand tingling and hand cramping ss PSYCH: Denies depression, suicidal or homicidal ideation PHYSICAL EXAMINATION General: No acute distress, well-nourished Head: Atraumatic, normocephalic ENT: Mouth normal, oropharynx moist, no exudates or tonsillar enlargement Eyes: Conjunctiva normal, pupils equal, lids normal Neck: No JVD, supple, no guarding CVS: Normal rate, regular rhythm, no murmurs Resp: No resp distress, equal and normal breath sounds bilaterally GI: Nondistended, soft, no tenderness to palpation, no rebound or guarding Ext: No deformities, no edema, normal range of motion in upper and lower ext Back: No CVA or midline TTP Skin: No rash, warm Lymphatic: No lymphadeopathy noted Neuro: Awake, alert. Face symmetric. GCS 15. Physical Exam - Vital signs Vitals: Temp Pulse Resp BP Pulse Ox 97.9 F 130 H 16 150/133 H 100 01/06/20 14:53 01/06/20 14:53 01/06/20 14:53 01/06/20 14:53 01/06/20 14:53 Course - Re-evaluation Re-evalutation: 01/06/20 16:31 Patient presents with repeat episode of what sounds like a panic or anxiety at tack with hyperventilation in the setting of remote SVT EKG shows sinus tach only. Repeat labs and other evaluation did not show source The patient has a stressful life and continues to smoke I discussed that this could be panic or anxiety but also that he needs to see a domestic cleaner. During her last ER visit I referred him and he saw Dr. Hua, and says that he had a stress test and echo but did not have an event monitor. He is probably a candidate for this and I asked him to contact his electrophysiology team back at [facility] for this. We discussed smoking cessation as well I have discussed with the patient there likely diagnosis, aftercare plan, follow-up plans and my usual and customary return precautions. They verbalized understanding of this. - Vital Signs Vital signs: Temp Pulse Resp BP Pulse Ox 97.9 F 130 H 16 150/133 H 100 01/06/20 14:53 01/06/20 14:53 01/06/20 14:53 01/06/20 14:53 01/06/20 14:53 - Laboratory Result Diagrams: 01/06/20 13:17 01/06/20 13:17 Laboratory results interpreted by me: 01/06/20 01/06/20 01/06/20 13:17 13:17 13:17 Hgb 17.1 H Sodium 136.3 L Potassium 3.4 L Glucose 111 H Phosphorus 1.4 L Magnesium 1.5 L Total Protein 8.5 H Albumin 5.4 H Urine Protein 100 H Urine Ketones TRACE H Urine Bilirubin SMALL H Urine Urobilinogen 2.0 H - EKG Interpretation by Me EKG shows normal: Sinus rhythm Rate: Normal, Tachycardia Rhythm: NSR When compared to previous EKG there are: No significant change Discharge - Discharge Clinical Impression: Atypical chest pain, Encounter for tobacco use cessation counseling Condition: Good Disposition: HOME, SELF-CARE Instructions: Chest Pain of Unclear Cause ([facility])
[2020-01-06 16:40] VITALS: BP 130/76
--- NOTE | 2020-01-06 23:21 | EKG REPORT ---
SEVERITY:- ABNORMAL ECG - SINUS TACHYCARDIA PROBABLE LEFT VENTRICULAR HYPERTROPHY INFERIOR Q WAVES, PROBABLY NORMAL VARIATION LATERAL Q WAVES, PROBABLY NORMAL VARIATION BORDERLINE PROLONGED QT INTERVAL : Confirmed by: Dominik Muñoz MD 06-Jan-2020 23:20:53
== END 2020-01-06 16:40 | disposition home or self-care (01) ==
LOC: ER 14:41
DX: R07.89 Other chest pain (principal); R00.2 Palpitations; R25.2 Cramp and spasm; R20.0 Anesthesia of skin; R06.4 Hyperventilation; Z71.6 Tobacco abuse counseling; F17.200 Nicotine dependence, unspecified, uncomplicated
CPT/HCPCS: 93005; 99285; 96360; 36415; 82550; 83690; 83735; 84100; 85025; 80053; 81001; 80307; 71046; 93010; J7030

== ENCOUNTER 2020-01-22 05:05 | Emergency (ER) | payer BC ==
--- NOTE | 2020-01-22 06:26 | RADIOLOGY REPORT (SQ) ---
CLINICAL HISTORY: FALL PAIN COMPARISON: None. TECHNIQUE: XR KNEE 4 OR MORE VIEWS 01/22/2020 5:27 AM CDT FINDINGS: There is no fracture. Joint spaces are preserved. Soft tissues are unremarkable. IMPRESSION: No acute osseous findings.
--- NOTE | 2020-01-22 06:57 | ER Document Report ---
ED Extremity Problem, Lower - General Chief Complaint: Knee Pain Stated Complaint: LEG INJURY Time Seen by Provider: 01/22/20 06:36 Mode of Arrival: Ambulatory Information source: Patient Notes: Patient is a 29-year-old male comes emergency room complaining of right knee pain. Patient states that he was getting up to go to the bathroom the middle of the night he lost his balance twisted his right knee but did not fall. He states he has had pain ever since. He ice it down for approximately an hour or 2 before coming emergency room but still very difficult to ambulate. Patient denies any past history of severe pain or or trauma to this knee in the past. 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 Denies stated any known other injuries besides this twist and near fall TRAVEL OUTSIDE OF THE [place] IN LAST 30 DAYS: No - HPI Patient complains to provider of: Injury, Pain, Swelling Location: Knee Occurred: This morning Where: Home Onset/Duration: Sudden, Persistent, Worse Quality of pain: Achy, Sharp, Throbbing Severity: Moderate Pain Level: 3 Context: Twisted Recent injury: Yes Exacerbated by: Movement, Walking Relieved by: Rest - Related Data Allergies/Adverse Reactions: No Known Drug Allergies Allergy (Verified 01/22/20 06:31) Past Medical History - General Information source: Patient - Social History Smoking Status: Current Every Day Smoker Cigarette use (# per day): Yes Chew tobacco use (# tins/day): No Smoking Education Provided: Yes Frequency of alcohol use: Occasional Drug Abuse: None Lives with: Family Family History: Reviewed & Not Pertinent Neurological Medical History: Reports: Hx Seizures Renal/ Medical History: Denies: Hx Peritoneal Dialysis Past Surgical History: Reports: Hx Cardiac Catheterization - ablation - Immunizations Immunizations up to date: Yes Review of Systems - Review of Systems Constitutional: No symptoms reported EENT: No symptoms reported Cardiovascular: No symptoms reported Respiratory: No symptoms reported Gastrointestinal: No symptoms reported Genitourinary: No symptoms reported Male Genitourinary: No symptoms reported Musculoskeletal: See HPI, Joint pain, Joint swelling Skin: No symptoms reported Hematologic/Lymphatic: No symptoms reported Neurological/Psychological: No symptoms reported -: Yes All other systems reviewed and negative Physical Exam - Vital signs Vitals: Temp Pulse Resp BP Pulse Ox 98.3 F 130 H 18 140/88 H 99 01/22/20 05:09 08/31/20 05:09 01/22/20 05:09 01/22/20 05:09 01/22/20 05:09 Interpretation: Hypertensive, Tachycardic - Notes Notes: PHYSICAL EXAMINATION: GENERAL: Patient is well-nourished well-developed 4-year-old male who is in no apparent distress on physical exam this morning however she does appear somewhat uncomfortable. HEAD: Atraumatic, normocephalic. NECK: Normal range of motion, supple without lymphadenopathy LUNGS: Breath sounds clear to auscultation bilaterally and equal. No wheezes rales or rhonchi. HEART: Regular rate and rhythm without murmurs Musculoskeletal: Semination patient very concerned his right knee. Examination shows that he has some mild circumferential swelling to the right knee as compared to the left. Most of the swelling is in the medial aspect of the knee itself. He has moderate tenderness to palpation along the medial collateral ligament area. Patient has had no instability noted in any direction. Anterior drawer is also negative but moderately discomforting when applied. Patient's vascular exam is normal. She has good popliteal pulse and good distal dorsalis pedal pulse. NEUROLOGICAL: Normal speech, normal gait. Normal sensory, motor exams PSYCH: Normal mood, normal affect. SKIN: Warm, Dry, normal turgor, no rashes or lesions noted. Course - Re-evaluation Re-evalutation: 01/22/20 07:02 Examination patient shows this to be either of severe strain or internal de rangement of the right knee. And placed him in a knee immobilizer nonweightbearing for 3 days given the name of the orthopedist on-call today he can contact his office after 3 days if it is still painful to see if he can accommodate him. - Vital Signs Vital signs: Temp Pulse Resp BP Pulse Ox 98.3 F 102 H 18 140/88 H 99 01/22/20 05:09 01/22/20 05:28 01/22/20 05:09 01/22/20 05:09 01/22/20 05:09 Procedures - Immobilization Right Knee Time completed: 07:02 Pre-Proc Neuro Vasc Exam: Normal Immobilizer type: Knee immobilizer Performed by: PCT Post-Proc Neuro Vasc Exam: Normal Alignment checked and good: Yes Discharge - Discharge Clinical Impression: Internal derangement of right knee Strain of right knee and leg Qualifiers: Encounter type: initial encounter Qualified Code(s): S86.911A - Strain of unspecified muscle(s) and tendon(s) at lower leg level, right leg, initial encounter Condition: Stable Disposition: HOME, SELF-CARE Instructions: Use of Crutches ([facility]), Ice & Elevation ([facility]), Suspected Internal Knee Injury ([facility]), Knee Immobilizing Splint ([facility]), Sprained Knee ([facility]) Additional Instructions: As we discussed home and rest. Continue icing the knee down 2-3 times a day for 10 to 15 minutes. Use the knee immobilizer at all times even when sleeping but she may loosen it up slightly so it is not as tight and constricting when you sleep. He can also open up when you ice down. Tylenol and ibuprofen or your best friends take them as directed you can either take them together every 8 hours or alternate them every 4 hours. Nonweightbearing for 3 days after 3 days you can attempt to bear weight if it still painful you will need to see an orthopedic. I am giving you the name of the orthopedist cushion maker hand today you can contact that office to see if they can accommodate you if you are still having pain after that timeframe. Should you have any other concerns or problems he knows return to ER for reevaluation. Forms: Elevated Blood Pressure, Smoking Cessation Education, Return to Work Referrals: ERASMO PRUETT DO [ACTIVE STAFF] - Follow up as needed
[2020-01-22 07:48] VITALS: BP 138/73
== END 2020-01-22 07:51 | disposition home or self-care (01) ==
LOC: ER 05:05
DX: M23.91 Unspecified internal derangement of right knee (principal); M25.561 Pain in right knee; X50.0XXA Overexertion from strenuous movement or load, initial encounter
CPT/HCPCS: 99283